=== PATIENT | female | born 1945 | race Caucasian/White ===

== ENCOUNTER → 2016-06-26 | Outpatient (CLI) | payer MEDICARE ==
--- NOTE | 2016-06-30 10:49 | MM ---
Reason for exam: screening (asymptomatic). Last mammogram was performed 1 year ago. History: Patient is postmenopausal. Implant Removal of both breasts, 2000. Implant Removal of both breasts, 1993. Silicone gel implants in both breasts. Excisional biopsy of the right breast. Implant Removal of both breasts. Took estrogen for 16 years beginning at age 50. Took progesterone for 16 years beginning at age 50. Physical Findings: A clinical breast exam by your physician is recommended on an annual basis and results should be correlated with mammographic findings. MG 3D Screening Mammo W/Cad Bilateral CC and MLO view(s) were taken. Prior study comparison: June 20, 2015, bilateral MG 3d screening mammo w/cad. There are scattered fibroglandular densities. There is no new dominant lesion. ASSESSMENT: Benign, BI-RAD 2 RECOMMENDATION: Routine screening mammogram of both breasts in 1 year.
== END ==
LOC: RADMAMWWP 09:01
PROVIDERS: ATTEND Family Medicine
DX: Z12.31 Encounter for screening mammogram for malignant neoplasm of breast (principal)
CPT/HCPCS: 77063; G0202

== ENCOUNTER 2016-08-20 07:45 | Day surgery (SDC) | payer MEDICARE ==
[2016-08-10 10:27] VITALS: BMI 24.2
[~2016-08-20 07:45] MED LIST: LACTATED RINGERS 1,000 ML IV SCH; LIDOCAINE 1% 20 ML VIAL (10MG/ML) FOR IV START INTRADERMA PRN
[2016-08-20 08:17] VITALS: RESP 16; TEMP 97.9
[2016-08-20] MEDS ORDERED: LIDOCAINE 1% 20 ML VIAL (10MG/ML) FOR IV START INTRADERMA ONE (08:22)
[2016-08-20] MEDS ORDERED: PROPOFOL 10 MG/ML 20 ML VIAL IV ONE (08:36)
[2016-08-20] MEDS ORDERED: LIDOCAINE 1% INJ 10MG/ML (20 ML MDV) ONE (08:36)
[2016-08-20] MEDS ORDERED: GLYCOPYRROLATE 0.2 MG/ML 2 ML VIAL ONE (08:36)
--- NOTE | 2016-08-20 08:49 | P.GSHP ---
History of Present Illness H&P Date: 08/20/16 Chief Complaint: GI bleed This a 71-year-old female referred from Dr. Leanna Raymond. Patient is today for EGD and colonoscopy. She's had issues with GI bleed. Past Medical History Past Medical History: Atrial Fibrillation, Cancer, Fibromyalgia, Mitral Valve Prolapse (MVP), Osteoarthritis (OA) Additional Past Medical History / Comment(s): SKIN BASAL CELL, abdominal pain, rectal bleeding, History of Any Multi-Drug Resistant Organisms: None Reported Past Surgical History: Section, Hysterectomy, Orthopedic Surgery Additional Past Surgical History / Comment(s): KYRA KNEE ARTHROSCOPY, kyra WRIST CARPAL TUNNEL, CERVICAL FUSION, kyra eye RK surgery Past Anesthesia/Blood Transfusion Reactions: Motion Sickness Additional Past Anesthesia/Blood Transfusion Reaction / Comment(s): diff waking up Past Psychological History: Anxiety Smoking Status: Never smoker Past Alcohol Use History: Rare Past Drug Use History: None Reported - Past Family History Mother Family Medical History: No Reported History Father Family Medical History: CVA/TIA Medications and Allergies Home Medications Medication Instructions Recorded Confirmed Type Acetaminophen [Tylenol Arthritis] 650 mg PO DAILY PRN 06/20/15 08/20/16 History Ascorbic Acid [Vitamin C] 500 mg PO DAILY 06/20/15 08/20/16 History Cyanocobalamin [Vitamin B-12] 500 mcg PO DAILY 06/20/15 08/20/16 History Aspirin [Adult Low Dose Aspirin EC] 81 mg PO BID 08/10/16 08/20/16 History Atenolol [Tenormin] 50 mg PO BID 08/10/16 08/20/16 History Diltiazem HCl [Diltiazem 12Hr ER] 120 mg PO QAM 08/10/16 08/20/16 History Stool Softner 2 tab PO QAM 08/10/16 08/20/16 History Zolpidem [Ambien] 5 mg PO HS 08/10/16 08/20/16 History Allergies Allergy/AdvReac Type Severity Reaction Status Date / Time codeine Allergy headache Verified 08/20/16 08:17 Sulfa (Sulfonamide AdvReac YEAST Verified 08/20/16 08:17 Antibiotics) INFECTIONS Surgical - Exam Vital Signs Temp Pulse Resp BP Pulse Ox 97.9 F 78 16 142/84 98 08/20/16 08:16 08/20/16 08:16 08/20/16 08:16 08/20/16 08:16 08/20/16 08:16 - General well developed, no distress - Eyes PERRL - ENT normal pinna - Neck no masses - Respiratory normal expansion - Cardiovascular Rhythm: regular - Abdomen Abdomen: soft, non tender Assessment and Plan Plan: GI bleed. We'll perform EGD and colonoscopy.
--- NOTE | 2016-08-20 09:09 | P.OP ---
Date of Procedure: 08/20/16 Preoperative Diagnosis: GI bleed Postoperative Diagnosis: Antral gastritis Small hiatal hernia Esophagitis Normal colon Procedure(s) Performed: EGD Colonoscopy Implants: Anesthesia: MAC Surgeon: Brian Sampson Pathology: other (Antrum, esophagus) Condition: stable Disposition: PACU Indications for Procedure: Operative Findings: Description of Procedure: PROCEDURE: The patient was placed on the endoscopy table in the lateral position. Digital rectal examination was performed which revealed no abnormalities. . Flexible colonoscope was then placed in the patient's anus and passed throughout the entire colon. The ileocecal valve was visualized. The cecum, ascending, transverse, descending and sigmoid colon were normal. The rectum was normal as well. There were no masses, polyps or diverticula noted in the entire colon. Next, the gastroscope some placed oropharynx passed into the esophagus and into the stomach. The scope was then placed through the pylorus. First and second portion of the duodenum appeared normal. Scope was then brought back the antrum and this appeared mildly inflamed. A biopsies performed. The scope was retroflexed and remainder of the stomach appeared normal. The GE junction was at 38 cm. The distal esophagus appeared mildly inflamed a biopsies performed. There was a small hiatal hernia. The proximal esophagus appeared normal. Scope syndrome patient.
[2016-08-20 09:37] VITALS: BP 120/74; PULSE 77
== END 2016-08-20 09:50 | disposition home or self-care (01) ==
LOC: ORWHC2ENDO 07:45
PROVIDERS: ATTEND Surgery
DX: K92.2 Gastrointestinal hemorrhage, unspecified (principal); K29.50 Unspecified chronic gastritis without bleeding; K21.0 Gastro-esophageal reflux disease with esophagitis; K44.9 Diaphragmatic hernia without obstruction or gangrene; F41.9 Anxiety disorder, unspecified; M19.90 Unspecified osteoarthritis, unspecified site; M79.7 Fibromyalgia; I34.1 Nonrheumatic mitral (valve) prolapse; I48.91 Unspecified atrial fibrillation; Z79.82 Long term (current) use of aspirin; Z79.899 Other long term (current) drug therapy; Z88.5 Allergy status to narcotic agent; Z88.2 Allergy status to sulfonamides; Z85.828 Personal history of other malignant neoplasm of skin
CPT/HCPCS: 88305; 88342; 45378; 43239; J2001; J2704

== ENCOUNTER → 2016-09-16 | Outpatient (CLI) | payer MEDICARE ==
[2016-09-16 09:19] LABS: CH 32.2; CHCM 34.1; HCT 44.4 % (34.0-46.0); HDW 2.51; MCHC 33.8 g/dL (31.0-37.0); MCV 94.7 fL (80.0-100.0); Mean Platelet Volume 6.8; RBC 4.69 m/uL (3.80-5.40); RDW 12.3 % (11.5-15.5); WBC 5.3 k/uL (3.8-10.6)
[2016-09-16 09:25] LABS: Anion Gap 10 mmol/L; Blood Urea Nitrogen 13 mg/dL (7-17); Calcium 9.4 mg/dL (8.4-10.2); Carbon Dioxide 26 mmol/L (22-30); Chloride 105 mmol/L (98-107); Glucose 91 mg/dL (74-99); Non-African American GFR(MDRD) >60 (>60 ml/min/1.73 sqM); Potassium 4.3 mmol/L (3.5-5.1); Sodium 141 mmol/L (137-145)
== END | disposition home or self-care (01) ==
LOC: LABWHC1 08:55
PROVIDERS: ATTEND Internal Medicine Clinical Cardiac Electrophysiology
DX: R07.9 Chest pain, unspecified (principal); I47.1 Supraventricular tachycardia; I35.9 Nonrheumatic aortic valve disorder, unspecified
CPT/HCPCS: 36415; 80048; 85027

== ENCOUNTER 2016-09-24 12:11 | Day surgery (SDC) | payer MEDICARE ==
[2016-09-18 10:32] VITALS: BMI 24.2
[2016-09-24] MEDS ORDERED: SODIUM CHLORIDE 0.9% 1,000 ML IV ONE (12:54)
[2016-09-24] MEDS ORDERED: LIDOCAINE 2% INJ 20 MG/ML SQ ONE (14:13)
[2016-09-24] MEDS ORDERED: HEPARIN SODIUM (1,000 UNIT/ML) 1,000 UNIT in SODIUM CHLORIDE 0.9% 1,000 ML IRRIGATION ONE (14:14)
[2016-09-24] MEDS ORDERED: ZOLPIDEM 10 MG TAB PO PRN (17:23)
[2016-09-24] MEDS ORDERED: HYDROcodone/APAP 5-325MG 1 EACH TAB PO PRN (17:24)
[2016-09-24] MEDS ORDERED: ACETAMINOPHEN IV (For NPO) 1,000 MG in EMPTY BAG 1 BAG IVPB ONE (18:00)
--- NOTE | 2016-09-24 18:05 | CE ---
This is a patient with a history of palpitations and documented supraventricular tachycardia with RVR, symptomatic, consistent with atrial flutter with 1:1 response. Patient was brought to the EP lab in a fasting state. Written informed consent was obtained prior to the procedure. The right and left groins were prepped and draped as per protocol and venous sheaths were placed in the right and left femoral veins. Via theses, diagnostic catheters were placed in the right heart ( high right atrial catheter, His bundle catheter, RV catheter and coronary sinus catheter). A full diagnostic EP study was performed, first at baseline and then on Isuprel. Baseline measurements were as follows: sinus cycle length 581 ms, CHELO interval 181 ms, QRS 84 ms, QT 352 ms. Baseline AH interval 88 ms, baseline HV interval 45 ms. Sinus node recovery times at 600, 500 and 400 ms were 887, 1029 and 819 ms. Corresponding corrected sinus node recovery times were within normal limits. There was no evidence for delta waves, no slow pathway conduction with straight pacing. AV node Wenckebach block 310 ms. Ventricular pacing was performed. Ventricular conduction was midline and incremental. VA Wenckebach block 340 ms. Para-Hisian pacing was performed and a viry response was noted. ( ) extrastimulation after double extrastimulation was performed from the high right atrium and from the coronary sinus, both on and off Isuprel. Burst stimulation was performed from the high right atrium and from the coronary sinus on and off Isuprel. Ventricular extrastimulation was performed. There was no evidence for SVT. Occasional septal PACs were noted. On Isuprel, VA Wenckebach block was 330 ms. AV node ERP was 350/220/210 ms. There was no evidence for AV viry re-entry There was no evidence for orthodromic or antidromic re-entry. No atrial tachycardia was induced. Following that, Isuprel was stopped. Intracardiac echo was performed. The patient had a small right atrium, a very short isthmus, thick with mid isthmus pouch which was V-shaped. There was also a thick eustachian ridge and laterally a subeustachian pouch. Three-D mapping of the cavotricuspid isthmus was performed. The tricuspid annulus and the eustachian ridge were identified and the coronary sinus was tagged. RF ablation at 30 godfrey irrigated-tip ( ) contact first catheter was performed. Linear ablation was performed from the tricuspid valve to the eustachian ridge. A complete anatomic line of block was made. Completeness was ensured during CS pacing. Following that, differential pacing was performed and there was evidence of bidirectional block noted. At the end of the procedure, intracardiac echo was placed in the RV and there was no evidence of pericardial effusion. All catheters were then removed. Patient was transferred back to Telemetry. RESULT: Diagnostic EP study revealing normal sinus node function, normal AV node function, and absence of AV viry re-entry or SVT related to any accessory pathways. Successful atrial flutter ablation was performed with confirmed bidirectional block with differential pacing. PLAN: Observation for any future episodes of atrial fibrillation. ANTONETTE
--- NOTE | 2016-09-24 18:17 | MISC ---
LETTER September 25, 2015 To: Dr. Leanna Young Re: Indiana Romero (45) Dear Leanna, I had the pleasure of seeing [place] Romero in electrophysiology followup. [place] underwent a diagnostic EP study and successful ablation for atrial flutter with confirmed bidirectional block. She did not have ( ) prior to this. EP diagnostic study was performed and she did not have evidence for AV viry re- entry, nor did she have evidence for an accessory pathway. Her 12-lead ECG was consistent with atrial flutter with a 1:1 response. I would suggest observing her in the future for episodes of atrial fibrillation and continuing anticoagulation. Thank you for entrusting me with the care of your patient. Warm regards. Sincerely, Tay Garcia M.D. [facility]
[2016-09-24] MEDS: SODIUM CHLORIDE 0.9% 1,000 ML IV SCH (20:19)
[2016-09-24] MEDS: APIXABAN 5 MG TAB PO SCH (20:19)
[2016-09-24] MEDS: ACETAMINOPHEN TAB 325 MG TAB PO PRN (20:20)
[2016-09-24 22:50] VITALS: RESP 16
[2016-09-24] MEDS ORDERED: traMADol 50 MG TAB PO PRN (23:01)
[2016-09-25] MEDS: SODIUM CHLORIDE 0.9% 1,000 ML IV SCH (06:13)
[2016-09-25] MEDS: ACETAMINOPHEN TAB 325 MG TAB PO PRN (06:51)
--- NOTE | 2016-09-25 07:19 | P.DS ---
Providers Attending physician: Tay Garcia Primary care physician: Leanna [facility] Course: Patient is doing well. She denies any chest discomfort no dizziness lightheadedness or shortness of breath she is lying comfortably in bed. She complains of a little bit of headache in the back of the neck which is very mild. No visual disturbance no motor deficits no weakness no staggering she stable on her feet and has been walking around. On examination she is afebrile 98.5F, pulse rate in the 80s, respirations 16, blood pressure on 29/60 8 mmHg Heart sounds S1 and S2 are normal no murmurs no gallops no rub Breath sounds are normal no rhonchi no crackles Abdomen is soft nontender Extremities are warm no edema Impression Atrial flutter with one-to-one conduction status post successful ablation with demonstration of bidirectional block with differential pacing No evidence for AV viry reentry or accessory pathway conduction MONICA VASC score is at least 2 Plan Stop atenolol, continue diltiazem Stop aspirin start ELIQUIS 5 mg twice daily for stroke prevention Follow-up with Dr. Viveros in about 1 week Patient Condition at Discharge: Stable Plan - Discharge Summary New Discharge Prescriptions: New Apixaban [Eliquis] 5 mg PO BID #1 tab Discontinued Atenolol [Tenormin] 25 mg PO BID No Action Ascorbic Acid [Vitamin C] 500 mg PO DAILY Acetaminophen [Tylenol Arthritis] 650 mg PO DAILY PRN PRN Reason: Pain Diltiazem HCl [Diltiazem 12Hr ER] 120 mg PO QAM Aspirin [Adult Low Dose Aspirin EC] 81 mg PO DAILY Zolpidem [Ambien] 10 mg PO HS PRN PRN Reason: sleep Stool Softner 2 tab PO QAM Biotin Supplement 1 tab PO DAILY Discharge Medication List Acetaminophen [Tylenol Arthritis] 650 mg PO DAILY PRN 06/20/15 [History] Ascorbic Acid [Vitamin C] 500 mg PO DAILY 06/20/15 [History] Aspirin [Adult Low Dose Aspirin EC] 81 mg PO DAILY 08/10/16 [History] Diltiazem HCl [Diltiazem 12Hr ER] 120 mg PO QAM 08/10/16 [History] Stool Softner 2 tab PO QAM 08/10/16 [History] Zolpidem [Ambien] 10 mg PO HS PRN 08/10/16 [History] Biotin Supplement 1 tab PO DAILY 09/18/16 [History] Apixaban [Eliquis] 5 mg PO BID #1 tab 09/24/16 [Rx] Activity/Diet/Wound Care/Special Instructions: Post EP study - Ablation instructions 1. Keep access sites dry for 2 days. 2. No heavy lifting or straining for 2 days. 3. Avoid bending the hips repeatedly for 2 days. 4. You may go up and down stairs slowly Call if the following is noted 1. Bleeding, increasing swelling or pain at the access sites. 2. Increasing chest discomfort, especially upon taking a deep breath. 3. Increasing shortness of breath, at rest or with exertion. 4. Undue cough / phlegm 5. Difficulty or pain while swallowing. 6. Pain or change in color in the extremities. 7. Fever, chills, rigors. 8. Increasing headache or neurologic symptoms. 9. Dizziness, fainting, palpitations See Dr. Viveros in 1 week Start ELIQUIS 5 mg twice daily Stop atenolol but continue diltiazem Discharge Disposition: HOME SELF-CARE
[2016-09-25] MEDS ORDERED: DILTIAZEM CD 120 MG CAP.ER.24H PO SCH (09:00)
[2016-09-25] MEDS ORDERED: ASPIRIN 81 MG CHEW PO SCH (09:00)
[2016-09-25] MEDS: APIXABAN 5 MG TAB PO SCH (09:45)
[2016-09-25 12:14] VITALS: BP 140/81; PULSE 90; TEMP 97.9
== END 2016-09-25 14:12 | disposition home or self-care (01) ==
LOC: CATHEP 12:11 → 3OBS 16:53 → CATHEP 09-25 14:12
PROVIDERS: ATTEND Internal Medicine Clinical Cardiac Electrophysiology
DX: I48.92 Unspecified atrial flutter (principal); I47.1 Supraventricular tachycardia; I10 Essential (primary) hypertension; Z82.49 Family history of ischemic heart disease and other diseases of the circulatory system; Z79.82 Long term (current) use of aspirin; Z79.899 Other long term (current) drug therapy; Z88.2 Allergy status to sulfonamides
CPT/HCPCS: 93623; 93662; 93613; 93653; C1894; C1769; C1893; C1730 ×3; C1759; C1732; J2001; J1644

== ENCOUNTER → 2017-08-24 | Outpatient (CLI) | payer MEDICARE ==
--- NOTE | 2017-08-26 10:31 | MM ---
Reason for exam: screening (asymptomatic). Last mammogram was performed 1 year and 2 months ago. History: Patient is postmenopausal. Implant Removal of both breasts, 2000. Implant Removal of both breasts, 1993. Silicone gel implants in both breasts. Excisional biopsy of the right breast. Implant Removal of both breasts. Took estrogen for 16 years beginning at age 50. Took progesterone for 16 years beginning at age 50. Physical Findings: A clinical breast exam by your physician is recommended on an annual basis and results should be correlated with mammographic findings. MG 3D Screening Mammo W/Cad Bilateral CC and MLO view(s) were taken. Prior study comparison: June 26, 2016, bilateral MG 3d screening mammo w/cad. July 01, 2015, left breast MG work up mamm w CAD LT. June 20, 2015, bilateral MG 3d screening mammo w/cad. May 10, 2014, bilateral MG screening mammo w CAD. There are scattered fibroglandular densities. There is chronic nodularity in the left breast. Asymmetry central left CC view is unchanged. No significant changes when compared with prior studies. ASSESSMENT: Negative, BI-RAD 1 RECOMMENDATION: Routine screening mammogram of both breasts in 1 year. ANTONETTE
== END | disposition home or self-care (01) ==
LOC: RADMAMWWP 09:22
PROVIDERS: ATTEND Family Medicine
DX: Z12.31 Encounter for screening mammogram for malignant neoplasm of breast (principal)
CPT/HCPCS: 77063; 77067

== ENCOUNTER → 2017-11-10 | Outpatient (CLI) | payer MEDICARE ==
--- NOTE | 2017-11-10 11:24 | CT ---
EXAMINATION TYPE: CT cervical spine wo con DATE OF EXAM: 11/10/2017 COMPARISON: None HISTORY: bilateral arm pain CT DLP: 295.6 mGycm Automated exposure control for dose reduction was used. TECHNIQUE: CT scan of the cervical spine is obtained without contrast, axial images are obtained, sa gittal and coronal reformatted images are also reviewed. FINDINGS: There is some apical scarring present bilaterally. There is an anterior cervical fusion C3-C7. Posterior spinal lamellar line appears intact. Posterior vertebral body spurring is noted. C5 endplate spurring has moderate anterior thecal sac compression. This is slightly greater to the right paracentral region. No AP spinal canal stenosis is present. There is some uncovertebral joint hypertrophy at C3-4 causing mild narrowing. Uncovertebral joint hyp ertrophy is present C4-5 with moderate left and mild right foraminal narrowing uncovertebral joint hy pertrophy C5-6 is without foraminal stenosis. IMPRESSION: 1. Postsurgical changes from cervical fusion. 2. Upper cervical spine foraminal narrowing appears greatest at C4-5 on left. 3. No spinal canal stenosis. 4. No acute changes.
== END | disposition home or self-care (01) ==
LOC: RADCTMAIN 09:02
DX: M99.71 Connective tissue and disc stenosis of intervertebral foramina of cervical region (principal); Z98.1 Arthrodesis status
CPT/HCPCS: 72125

== ENCOUNTER → 2018-09-01 | Outpatient (CLI) | payer MEDICARE ==
--- NOTE | 2018-09-02 09:50 | MM ---
Reason for exam: screening (asymptomatic). Last mammogram was performed 1 year ago. History: Patient is postmenopausal. Implant Removal of both breasts, 2000. Implant Removal of both breasts, 1993. Silicone gel implants in both breasts. Excisional biopsy of the right breast. Implant Removal of both breasts. Took estrogen for 16 years beginning at age 50. Took progesterone for 16 years beginning at age 50. Physical Findings: A clinical breast exam by your physician is recommended on an annual basis and results should be correlated with mammographic findings. MG 3D Screening Mammo W/Cad Bilateral CC, MLO, and XCCL view(s) were taken. Prior study comparison: August 24, 2017, bilateral MG 3d screening mammo w/cad. June 26, 2016, bilateral MG 3d screening mammo w/cad. The breast tissue is heterogeneously dense. This may lower the sensitivity of mammography. Focal asymmetry left CC view is stable. No significant changes when compared with prior studies. ASSESSMENT: Benign, BI-RAD 2 RECOMMENDATION: Routine screening mammogram of both breasts in 1 year.
== END | disposition home or self-care (01) ==
LOC: RADMAMWWP 10:47
PROVIDERS: ATTEND Family Medicine
DX: Z12.31 Encounter for screening mammogram for malignant neoplasm of breast (principal)
CPT/HCPCS: 77063; 77067

== ENCOUNTER → 2018-12-06 | Outpatient (CLI) | payer MEDICARE ==
--- NOTE | 2018-12-06 16:12 | XR ---
EXAMINATION TYPE: XR thoracic spine complete DATE OF EXAM: 12/06/2018 COMPARISON: None HISTORY: M [age] thoracic back pain TECHNIQUE: Three-view thoracic spine FINDINGS: Degenerative disc changes are present throughout the thoracic spine. Spondylosis is present . Scoliosis within the lumbar spine. IMPRESSION: 1. Scoliosis lumbar spine. 2. Spondylosis and degenerative disc change throughout the thoracic spine.
--- NOTE | 2018-12-06 16:27 | CT ---
EXAMINATION TYPE: CT cervical spine wo con DATE OF EXAM: 12/06/2018 COMPARISON: 11/10/2017 HISTORY: neck pain, no injury CT DLP: [address] of the cervical spine was performed with bone and soft tissue window settings submitted . Coronal and sagittal reconstruction is obtained. Again noted is anterior cervical fusion C3-C7. Posterior vertebral body spurring is noted. There is 2 .2 mm anterior subluxation of the C6 on C7 which appears unchanged relative to the prior study. C5 en dplate spurring has moderate anterior thecal sac compression. This is slightly greater to the right p aracentral region. No AP spinal canal stenosis is present. There is some uncovertebral joint hypertro phy at C3-4 causing mild narrowing. Uncovertebral joint hypertrophy is present C4-5 with moderate lef t and mild right foraminal narrowing uncovertebral joint hypertrophy C5-6 is without foraminal stenos is. IMPRESSION: 1. Postsurgical changes of anterior cervical discectomy and fusion as noted above. Alignment at C6-C7 is unchanged with 2.2 mm anterior subluxation. 2. Foraminal narrowing as noted above greatest at C4-5 on the left. 3. No evidence for recurrent stenosis or disc herniation.
== END | disposition home or self-care (01) ==
LOC: RADCTMAIN 15:16
PROVIDERS: ATTEND Family Medicine
DX: M48.02 Spinal stenosis, cervical region (principal); S13.170A Subluxation of C6/C7 cervical vertebrae, initial encounter; M54.6 Pain in thoracic spine; M41.9 Scoliosis, unspecified; M47.814 Spondylosis without myelopathy or radiculopathy, thoracic region; Z98.1 Arthrodesis status
CPT/HCPCS: 72072; 72125

== ENCOUNTER → 2019-10-09 | Outpatient (CLI) | payer MEDICARE ==
--- NOTE | 2019-10-09 14:48 | BD ---
EXAMINATION TYPE: Axial Bone Density DATE OF EXAM: 10/09/2019 COMPARISON: NONE CLINICAL HISTORY: Postmenopausal female. Height: 4 FT 11 IN Weight: 124 FRAX RISK QUESTIONS: Alcohol (3 or more units per day): NO Family History (Parent hip fracture): NO Glucocorticoids (More than 3mos): NO (Ex: prednisone, prednisolone, methylprednisolone, dexamethasone, and hydrocortisone). History of Fracture in Adulthood: NO Secondary Osteoporosis: 1. Type 1 Diabetes: NO 2. Hyperthyroidism: NO 3. Menopause before 45: NO 4. Malnutrition: NO 5. Chronic liver disease: NO Rheumatoid Arthritis: YES Current Tobacco Use: NO RISK FACTORS HISTORY OF: Surgery to Spine/Hip(right/left)/Wrist (right/left): CERV FUSION When: AGE 70 Family History of Osteoporosis: YES Active: YES Postmenopausal woman: AGE 53-54 Take estrogen and/or progesterone medications: TOOK HRT APPROX 5 YEARS NOT ON CURRENTLY MEDICATIONS: Additional Medications: ELIQUIS, ATENOLOL, Additional History: KYRA CARPAL TUNNEL SURG IN THE PAST EXAM MEASUREMENTS: Bone mineral densitometry was performed using the [employer] System. Bone mineral density as measured about the Lumbar spine is: ----- L1-L4(G/cm2): 1.544 T Score Values are as follows: ----- L2: 3.1 ----- L3: 3.0 ----- L4: 3.4 ----- L1-L4: 3.0 BASELINE Bone mineral density about the R hip (g/cm2): 0.807 Bone mineral density about the L hip (g/cm2): 0.808 T Score values are as follows: -----R Neck: -1.7 -----L Neck: -1.7 -----R Total: -1.5 -----L Total: -1.3 BASELINE IMPRESSION: Osteopenia (T Score between -2.5 and -1) in the bilateral hips. There is slightly increased risk of fracture and the patient may be considered for treatment. Re-Screen 2-5 years. NOTE: T-SCORE=SD OF THE YOUNG ADULT MEAN.
== END | disposition home or self-care (01) ==
LOC: RADBDWWP 12:23
PROVIDERS: ATTEND Family Medicine
DX: M85.89 Other specified disorders of bone density and structure, multiple sites (principal); Z78.0 Asymptomatic menopausal state
CPT/HCPCS: 77080

== ENCOUNTER → 2019-10-18 | Outpatient (CLI) | payer MEDICARE ==
--- NOTE | 2019-10-18 10:12 | MM ---
Reason for exam: additional evaluation requested from abnormal screening. Last mammogram was performed less than 1 month ago. History: Patient is postmenopausal and history of other cancer. Implant Removal of both breasts, 2000. Implant Removal of both breasts, 1993. Silicone gel implants in both breasts. Excisional biopsy of the right breast. Implant Removal of both breasts. Took hormonal contraceptives for 7 years. Took estrogen for 16 years beginning at age 50. Took progesterone for 16 years beginning at age 50. Physical Findings: Nurse did not find any significant physical abnormalities on exam. MG 3D Work Up W/Cad RT Spot compression CC, spot compression MLO, and ML view(s) were taken of the right breast. Prior study comparison: October 04, 2019, bilateral MG 3d screening mammo w/cad. September 01, 2018, bilateral MG 3d screening mammo w/cad. There are scattered fibroglandular densities. There is chronic nodularity in the right breast. The posterior asymmetric denity disperses on additional views suggesting a fold. No significant new findings when compared with previous films. These results were verbally communicated with the patient and result sheet given to the patient on 10/18/19. ASSESSMENT: Benign, BI-RAD 2 RECOMMENDATION: Return to routine screening mammogram schedule for both breasts.
== END | disposition home or self-care (01) ==
LOC: RADMAMWWP 08:49
PROVIDERS: ATTEND Family Medicine
DX: R92.8 Other abnormal and inconclusive findings on diagnostic imaging of breast (principal)
CPT/HCPCS: 77065; G0279; 77061

== ENCOUNTER → 2020-10-08 | Outpatient (CLI) | payer MEDICARE ==
--- NOTE | 2020-10-14 11:52 | MM ---
Reason for exam: screening (asymptomatic). Last mammogram was performed 1 year ago. History: Patient is postmenopausal and history of other cancer. Implant Removal of both breasts, 2000. Implant Removal of both breasts, 1993. Silicone gel implants in both breasts. Excisional biopsy of the right breast. Implant Removal of both breasts. Took hormonal contraceptives for 7 years. Took estrogen for 16 years beginning at age 50. Took progesterone for 16 years beginning at age 50. Physical Findings: A clinical breast exam by your physician is recommended on an annual basis and results should be correlated with mammographic findings. MG 3D Screening Mammo W/Cad Bilateral CC and MLO view(s) were taken. Prior study comparison: October 18, 2019, right breast MG 3d work up w/cad RT. October 04, 2019, bilateral MG 3d screening mammo w/cad. September 01, 2018, bilateral MG 3d screening mammo w/cad. August 24, 2017, bilateral MG 3d screening mammo w/cad. June 26, 2016, bilateral MG 3d screening mammo w/cad. There are scattered fibroglandular densities. There is chronic nodularity in the left breast. Stable central lateral asymmetric density left CC view. No significant changes when compared with prior studies. ASSESSMENT: Benign, BI-RAD 2 RECOMMENDATION: Routine screening mammogram of both breasts in 1 year.
== END | disposition home or self-care (01) ==
LOC: RADMAMWWP 12:23
PROVIDERS: ATTEND Family Medicine
DX: Z12.31 Encounter for screening mammogram for malignant neoplasm of breast (principal); Z85.9 Personal history of malignant neoplasm, unspecified; Z78.0 Asymptomatic menopausal state; Z79.3 Long term (current) use of hormonal contraceptives
CPT/HCPCS: 77063; 77067

== ENCOUNTER → 2021-08-25 | Outpatient (CLI) | payer MEDICARE ==
--- NOTE | 2021-08-26 02:11 | MR ---
EXAMINATION TYPE: MR cervical spine wo con DATE OF EXAM: 08/25/2021 COMPARISON: None HISTORY: Neck pain that radiates into both arms, bilateral arm numbness. Multiplanar multiecho imaging of the cervical spine with no contrast. Cervical vertebra have normal alignment. There is metal artifact from multilevel anterior fusion surg td from C3 to C7. No compression fracture. Cervical spinal cord has fairly normal signal pattern. No edema. No spinal stenosis. Spinal canal measures more than 7 mm. Brainstem is intact. No evidence of focal bone destruction. There is multilevel spondylotic changes in the upper thoracic spine with dis c space narrowing and endplate spur formation. No spinal stenosis. There is developmentally adequate spinal canal in the thoracic region. IMPRESSION: Multilevel cervical spine fusion surgery. No evidence of spinal stenosis.
== END | disposition home or self-care (01) ==
LOC: RADMRIMAIN 16:26
PROVIDERS: ATTEND Family Medicine
DX: M47.22 Other spondylosis with radiculopathy, cervical region (principal); Z98.1 Arthrodesis status
CPT/HCPCS: 72141

== ENCOUNTER → 2021-10-09 | Outpatient (CLI) | payer MEDICARE ==
--- NOTE | 2021-10-10 07:37 | MM ---
Reason for Exam: Screening (asymptomatic). Last screening mammogram was performed 12 month(s) ago. Patient History: Menarche at age 12. First Full-Term at age 22. Hysterectomy at age 38. Postmenopausal. Other cancer. Estrogen for 16 years from age 50 until age 68. Progesterone for 16 years from age 50 until age 68. Patient used Hormonal Contraceptives for 7 years. Excisional Biopsy on the Right side. 1993, Bilateral Implant Removal. Bilateral Implant Removal. 2000, Bilateral Implant Removal. Bilateral Implants. Risk Values: Ramona 5 year model risk: 1.9%. NCI Lifetime model risk: 3.8%. Prior Study Comparison: 10/04/2019 Bilateral Screening Mammogram, [facility]. 10/18/2019 Right Diagnostic Mammogram, [facility]. 10/08/2020 Bilateral Screening Mammogram, [facility]. Tissue Density: There are scattered fibroglandular densities. Findings: Analyzed By CAD. A few small well-defined masses bilaterally are stable. There is no suspicious new group of microcalcifications or new distortion in either breast. Overall Assessment: Benign, BI-RAD 2 Management: Screening Mammogram of both breasts in 1 year. A clinical breast exam by your physician is recommended on an annual basis and results should be correlated with mammographic findings. Electronically signed and approved by: James Galeano M.D.
== END | disposition home or self-care (01) ==
LOC: RADMAMWWP 10:47
PROVIDERS: ATTEND Family Medicine
DX: Z12.31 Encounter for screening mammogram for malignant neoplasm of breast (principal); Z78.0 Asymptomatic menopausal state
CPT/HCPCS: 77063; 77067

== ENCOUNTER 2022-07-30 08:30 | Day surgery (SDC) | payer MEDICARE ==
[2022-07-28 15:27] VITALS: BMI 24.2
[~2022-07-30 08:30] MED LIST changes: +LIDOCAINE 1% (10MG/ML) FOR IV START INTRADERMA PRN; -LIDOCAINE 1% 20 ML VIAL (10MG/ML) FOR IV START INTRADERMA PRN
[2022-07-30 09:01] VITALS: TEMP 97.5
[2022-07-30] MEDS ORDERED: LIDOCAINE 2% INJ 20 MG/ML (2 ML VIAL) ONE (09:27)
[2022-07-30] MEDS ORDERED: PROPOFOL 10 MG/ML 20 ML VIAL IV ONE (09:27)
--- NOTE | 2022-07-30 09:52 | P.OP ---
Date of Procedure: 07/30/22 Preoperative Diagnosis: GERD GI bleed Postoperative Diagnosis: Antral gastritis Mild diverticulosis Procedure(s) Performed: EGD Colonoscopy Anesthesia: MAC Surgeon: Brian Sampson Pathology: other (Antrum) Condition: stable Disposition: PACU Description of Procedure: The patient's placed on the endoscopy table in the lateral position. She received IV sedation. The gastro-/oropharynx passed in the esophagus and stomach. Scope was then placed through the pylorus. The first and second portion of the duodenum appeared normal. Scope was then brought back the antrum this. Mildly inflamed. A biopsies performed. The scope was then retroflexed and the remainder of the stomach appeared all. The GE junction. Normal. There is no evidence of esophagitis. There is no evidence of a hiatal hernia. The proximal esophagus appeared normal. Scope withdrawn for patient. Next digital rectal exam was performed. Is revealed a few internal hemorrhoids. The colonoscope was then placed patient anus passed throughout the old. The pediatric colonoscope was used by. The ileocecal valve, be visualized well sigmoid tortuosity valve. The visualized right colon appeared normal. The transverse colon appeared normal. In the descending and sigmoid colon there is mild diverticular changes. The scope was brought back the rectum this appeared normal. Scope withdrawn for patient. There is no evidence of any GI bleed. Resume the patient may have had bleeding from internal hemorrhoids.
[2022-07-30 10:10] VITALS: BP 125/70; PULSE 61; RESP 16
== END 2022-07-30 10:34 | disposition home or self-care (01) ==
LOC: ORWHC2ENDO 08:30
PROVIDERS: ATTEND Surgery
DX: K64.8 Other hemorrhoids (principal); K29.50 Unspecified chronic gastritis without bleeding; K57.30 Diverticulosis of large intestine without perforation or abscess without bleeding; K21.9 Gastro-esophageal reflux disease without esophagitis; F41.9 Anxiety disorder, unspecified; M79.7 Fibromyalgia; Z79.899 Other long term (current) drug therapy; Z90.710 Acquired absence of both cervix and uterus
CPT/HCPCS: 88305; 45378; 43239; J2704; J2001

== ENCOUNTER → 2022-10-13 | Outpatient (CLI) | payer MEDICARE ==
--- NOTE | 2022-10-14 07:57 | MM ---
Reason for Exam: Screening (asymptomatic). Last screening mammogram was performed 12 month(s) ago. Patient History: Menarche at age 12. First Full-Term at age 22. Hysterectomy at age 38. Postmenopausal. Other cancer. Estrogen for 16 years from age 50 until age 68. Progesterone for 16 years from age 50 until age 68. Patient used Hormonal Contraceptives for 7 years. Excisional Biopsy on the Right side. 1993, Bilateral Implant Removal. Bilateral Implant Removal. 2000, Bilateral Implant Removal. Bilateral Implants. Risk Values: Ramona 5 year model risk: 1.8%. NCI Lifetime model risk: 3.5%. Prior Study Comparison: 10/18/2019 Right Diagnostic Mammogram, [facility]. 10/08/2020 Bilateral Screening Mammogram, [facility]. 10/09/2021 Bilateral MG 3D screening mammo w/cad, [facility]. Tissue Density: The breast tissue is heterogeneously dense. This may lower the sensitivity of mammography. Findings: Analyzed By CAD. There is no suspicious group of microcalcifications or new suspicious mass in either breast. Overall Assessment: Benign, BI-RAD 2 Management: Screening Mammogram of both breasts in 1 year. . Patient should continue monthly self-breast exams. A clinical breast exam by your physician is recommended on an annual basis. This exam should not preclude additional follow-up of suspicious palpable abnormalities. Note on Ramona scores and lifetime risk: 1. A Ramona score greater than 3% is considered moderate risk. If this is the case, consider specialist referral to assess eligibility for a risk reducing agent. 2. If overall lifetime risk for the development of breast cancer is 20% or higher, the patient may qualify for future screening with alternating mammogram and breast MRI. Electronically signed and approved by: Michael Gastelum M.D. Radiologis
== END | disposition home or self-care (01) ==
LOC: RADMAMWWP 15:13
PROVIDERS: ATTEND Family Medicine
DX: Z12.31 Encounter for screening mammogram for malignant neoplasm of breast (principal); Z78.0 Asymptomatic menopausal state
CPT/HCPCS: 77063; 77067

== ENCOUNTER → 2023-10-15 | Outpatient (CLI) | payer MEDICARE ==
--- NOTE | 2023-11-09 08:37 | MM ---
Reason for Exam: Screening (asymptomatic). Last screening mammogram was performed 12 month(s) ago. Patient History: Menarche at age 12. First Full-Term at age 22. Hysterectomy at age 38. Postmenopausal. Estrogen for 16 years from age 50 until age 68. Progesterone for 16 years from age 50 until age 68. Patient used Hormonal Contraceptives for 7 years. Excisional Biopsy on the Right side. 1993, Bilateral Implant Removal. Bilateral Implant Removal. 2000, Bilateral Implant Removal. Bilateral Implants. Risk Values: Ramona 5 year model risk: 1.8%. NCI Lifetime model risk: 3.3%. Prior Study Comparison: 10/08/2020 Bilateral Screening Mammogram, [facility]. 10/09/2021 Bilateral MG 3D screening mammo w/cad, [facility]. 10/13/2022 Bilateral MG 3D screening mammo w/cad, [facility]. Tissue Density: The breasts are almost entirely fatty. Findings: Analyzed By CAD. Right breast: There is no suspicious group of microcalcifications or new suspicious mass. Left breast: There is no suspicious group of microcalcifications or new suspicious mass. Overall Assessment: Negative, BI-RAD 1 Management: Screening Mammogram of both breasts in [address] [facility] will attempt to contact patient to return for supplemental views and ultrasound if indicated. Patient should continue monthly self-breast exams. A clinical breast exam by your physician is recommended on an annual basis. This exam should not preclude additional follow-up of suspicious palpable abnormalities. Note on Ramona scores and lifetime risk: 1. A Ramona score greater than 3% is considered moderate risk. If this is the case, consider specialist referral to assess eligibility for a risk reducing agent. 2. If overall lifetime risk for the development of breast cancer is 20% or higher, the patient may qualify for future screening with alternating mammogram and breast MRI. Electronically signed and approved by: Calos Mcgee DO
== END | disposition home or self-care (01) ==
LOC: RADMAMWWP 12:00
PROVIDERS: ATTEND Family Medicine
DX: Z12.31 Encounter for screening mammogram for malignant neoplasm of breast (principal); Z78.0 Asymptomatic menopausal state; R92.313 Mammographic fatty tissue density, bilateral breasts
CPT/HCPCS: 77063; 77067

== ENCOUNTER → 2023-12-31 | Outpatient (CLI) | payer MEDICARE ==
--- NOTE | 2023-12-31 13:49 | CT ---
EXAMINATION TYPE: CT sinus wo con CT DLP: 613 mGycm, Automated exposure control for dose reduction was used. DATE OF EXAM: 12/31/2023 1:42 PM COMPARISON: No direct comparisons. CLINICAL INDICATION:Female, 78 years old with history of J32.9 CHRONIC SINUSITIS Z78.0 ASYMP DG STA TE; PHH, chronic sinusitis CONTRAST: None. TECHNIQUE: Multiple thin axial images were obtained through the paranasal sinuses without the use of IV contrast. Additional coronal and sagittal reformatted images were submitted for evaluation. FINDINGS: Frontal sinuses: Normally developed and aerated. Frontal Recess: Clear Maxillary Sinuses: Normally developed and aerated. Maxillary Infundibula([facility]): Clear, left-sided Stacy cell without significant narrowing. Ethmoid sinuses: Normally developed and aerated. Ethmoidal notch: Protected and abutting the lateral lamina. Sphenoid sinuses: Normally developed and aerated. There is sellar sphenoid sinus pneumatization witho ut evidence of dehiscence. No dehiscence of carotid canal. No evidence of optic nerve dehiscence wit hin the sphenoid sinus. Sphenoethmoidal recesses: Clear. Nasal septum: Mildly deviated to the right with spurring. Nasal Turbinates: Within normal limits. A marge bullosa defect is seen involving the left middle tur binate. Mastoid air cells & middle ears: The air cells are clear. The middle ears are grossly unremarkable. Modified Soft tissues & Brain: Partially seen without gross abnormality. Bilateral aphakia. Periventr icular scattered hypodensities likely related to chronic small vessel ischemic disease. Other: Cribriform plate demonstrates symmetric Keros classification type 1 cribriform plate. No evidence of bony dehiscence of skull base. Lamina papyracea is intact without evidence of remote orbital fracture or orbital prolapse into the e thmoid sinus. Partial visualization of anterior cervical fusion hardware. IMPRESSION: 1. No significant mucosal sinus disease. 2. The ostiomeatal units, frontonasal and sphenoethmoidal recesses are clear. 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 [facility], , 12/31/2023 1:47 PM
== END | disposition home or self-care (01) ==
LOC: RADCTMAIN 13:09
PROVIDERS: ATTEND Family Medicine
DX: J32.9 Chronic sinusitis, unspecified (principal)
CPT/HCPCS: 70486